=== PATIENT | male | born 1975 | race Caucasian/White ===

== ENCOUNTER 2020-06-21 06:46 | Emergency (ER) | payer BC ==
[2020-06-21] MEDS ORDERED: NORMAL SALINE 1000 ML 1,000 ML IV ONE (07:22)
[2020-06-21] MEDS ORDERED: DIPH/PERTUSS(ACELL)/TETANUS VAC/PF 0.5 ML SYR (>=10YO) IM ONE (07:23)
--- NOTE | 2020-06-21 07:29 | ER Document Report ---
ED General - General Chief Complaint: Syncope Stated Complaint: FALL Time Seen by Provider: 06/21/20 07:06 - HPI Notes: Chief complaint: Syncopal episode History of present illness: 45-year-old male visiting here from [facility] transported to our department this morning after experiencing a syncopal episode shortly after awakening. The patient says that he had gone in the kitchen to prepare some coffee and he felt slightly chilled and then felt momentarily short of breath. He stepped to the door to "get some fresh air" and as he started open the door he lost consciousness and fell to the floor striking his head on a cabinet sustaining a mild laceration to the right worship area. He was unconscious only momentarily and immediately fully awake and oriented. No nausea vomiting. No tonic-clonic movements per his who was with him at the time. States that he feels fine now. Denies any prior history of syncopal episodes. He denies any chest pain or hemoptysis. He denies any lower extremity pain or swelling. He is a non-smoker. Last tetanus booster was more than 4 years ago. Patient has been traveling for the holidays to come here from [place] to visit with his son. He denies any personal or familial history of thromboembolic disease. We note that he has been treated within the last year for renal cell carcinoma and had a left nephrectomy about 8 months ago. He also is on Bystolic for hypertension says he has been taking this for about 18 years. No other regular medications. No known allergies. 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 Denies alcohol consumption. Denies any use of illicit drugs. - Related Data Allergies/Adverse Reactions: No Known Allergies Allergy (Verified 06/21/20 10:12) Past Medical History - General Information source: Patient, Emergency Med Personnel - Social History Smoking Status: Never Smoker Chew tobacco use (# tins/day): No Frequency of alcohol use: None Drug Abuse: None Lives with: Spouse/Significant other Family History: Reviewed & Not Pertinent - Past Medical History Cardiac Medical History: Reports: Hx Hypertension Denies: Hx DVT, Hx Heart Attack, Hx Pulmonary Embolism Pulmonary Medical History: Reports: None Neurological Medical History: Reports: None Endocrine Medical History: Denies: Hx Diabetes Mellitus Type 1, Hx Diabetes Mellitus Type 2 Renal/ Medical History: Reports: Other - History of renal cell carcinoma Malignancy Medical History: Reports Hx Renal (Kidney) Cancer GI Medical History: Reports: None Musculoskeletal Medical History: Reports None Psychiatric Medical History: Reports: None Traumatic Medical History: Reports: None Past Surgical History: Reports: Hx Urinary Tract Surgery - Left nephrectomy Review of Systems - Review of Systems Notes: Constitutional: Negative for fever. HENT: Negative for sore throat. Eyes: Negative for visual changes. Cardiovascular: Negative for chest pain. Respiratory: As per HPI. Gastrointestinal: Negative for abdominal pain, vomiting or diarrhea. Genitourinary: Negative for dysuria. Musculoskeletal: Negative for back pain. Skin: Negative for rash. Neurological: Negative for headaches, focal weakness or numbness. 10 point ROS negative except as marked above and in HPI. Physical Exam - Vital signs Vitals: Pulse Ox 94 06/21/20 06:56 - Notes Notes: GENERAL: Well-developed well-nourished male approximately stated age appearing in no acute distress. SKIN: Good turgor no rashes. HEAD: Patient has a very superficial flap laceration of the right temporal area which measures about 2.0 cm's total length. No active bleeding from this. EYES: PERRLA. EOMI. Conjunctivae and sclerae clear. EARS: CANALS AND TMS CLEAR. NOSE: CLEAR. MOUTH: Moist mucosa. Good dentition. No stridor or edema. No drooling. NECK: Semirigid c-collar in place per EMS. No masses or thyromegaly. No adenopathy. Carotids 2+ without bruits. No JVD. BACK: Symmetrical without tenderness. CHEST: Respirations unlabored. Breath sounds clear and symmetrical. HEART: Regular rhythm. No murmur gallop or rub. ABDOMEN: Soft nontender without masses, organomegaly or rebound. Bowel sounds normally active. No bruits. GENITALIA: Deferred. EXTREMITIES: No edema. No calf tenderness. Cap refill less than 1.5 seconds. Dorsalis pedis and posterior tibial pulses 3+ and symmetrical. NEUROLOGICAL: GCS 15. Alert and oriented x3. Fluent speech. Cranial nerves II through XII intact. Sensorimotor and cerebellar normal. Normal tone. PSYCHIATRIC: Appropriate affect. Course - Re-evaluation Re-evalutation: 06/21/20 07:29 I reviewed his twelve-lead EKG and is unremarkable. He was mildly orthostatic in the field per EMS. I will give him a 1 L normal saline fluid bolus here and then recheck orthostatic vital signs. We will check a stool guaiac for him. I am going to get a D-dimer to screen him for pulmonary embolus. I have also requested CBC, comprehensive metabolic profile, troponin, urinalysis, blood alcohol and urine drug screen. Will obtain a chest x-ray and other imaging will include a noncontrast head CT and noncontrast CT of C-spine. Tetanus booster will be administered. The superficial wound on his right worship area appears to be appropriate for closure with Dermabond. 06/21/20 14:22 Per radiologist this gentleman had a negative head CT noncontrast and a negative noncontrast CT of the C-spine. His chest x-ray shows some multifocal infiltrates. White count is 18,000. He denies known Covid exposure but has been traveling. He also had a mildly elevated D-dimer. We obtained a CTA of the chest which showed no evidence of PE but he does have multi lobar infiltrates. A rapid Covid test was obtained and was negative. Prior to getting the results of this we gave this man a dose of IV Decadron. Blood cultures were obtained and we gave him azithromycin and Rocephin IV. Patient is not currently orthostatic. His EKG was normal. His troponin is normal. His oxygenation is normal. Case was reviewed with on-call hospitalist Dr. Levin. She did not feel that he met appropriate criteria at this time for admission or inpatient observation. She recommends outpatient treatment with oral antibiotic and follow-up for new or worsening symptoms. This has been reviewed with the patient and his and they are comfortable with this. Findings, clinical impression and plan of treatment have been discussed with patient/family. Understanding of current findings and recommendations has been acknowledged by them and there is agreement regarding disposition and follow-up. - Vital Signs Vital signs: Temp Pulse Resp BP Pulse Ox 98.1 F 24 H 148/83 H 94 06/21/20 09:31 06/21/20 13:31 06/21/20 13:31 06/21/20 13:31 - Laboratory Results Result Diagrams: 06/21/20 07:53 06/21/20 07:53 Laboratory Results Interpreted: 06/21/20 06/21/20 06/21/20 07:53 07:53 07:53 WBC 18.6 H RBC 5.65 H Hgb 13.4 L MCV 72 L MCH 23.7 L RDW 15.5 H Seg Neuts % (Manual) 94 H Band Neutrophils % 1 L Lymphocytes % (Manual) 4 L Monocytes % (Manual) 1 L Abs Neuts (Manual) 17.7 H D-Dimer 0.52 H Sodium 136.9 L Glucose 114 H Critical Laboratory Results Reviewed: Yes Attending or Supervising Physician who Reviewed Labs: IVANA CRUZ Radiology Results Radiology Results Interpreted: 06/21/20 14:21 Chest X-Ray 06/21/20 07:21 IMPRESSION: In the appropriate clinical setting, findings are consistent with multi lobar pneumonia. Cervical Spine CT 06/21/20 07:22 IMPRESSION: NO ACUTE OR SIGNIFICANT FINDINGS IN THE CERVICAL SPINE. Head CT 06/21/20 07:22 IMPRESSION: NORMAL BRAIN CT WITHOUT CONTRAST. EVIDENCE OF ACUTE STROKE: NO. Chest/Abdomen CTA 06/21/20 09:33 IMPRESSION: 1. No central or segmental pulmonary embolus. 2. Re- demonstration of multifocal airspace opacities, consistent with multi lobar pneumonia. Given distribution, recommend consideration for atypical etiologies to include viral/COVID in treatment planning. 3. Chronic and incidental findings as detailed above. Critical Radiology Results Reviewed: Yes Attending or Supervising Physician who Reviewed Radiology: IVANA CRUZ EKG Interpretation by Me Additional EKG results interpreted by me: 06/21/20 07:32 Twelve-lead EKG reviewed by me contemporaneously: 0709 hrs. Indication for study: Syncope Rhythm: Normal sinus Rate: 95 Intervals: Normal intervals QRS axis: -[address]/T wave changes: None Comparison with prior tracing: None Interpretation: Left axis deviation Procedures - Laceration/Wound Repair Right Face Time completed: 12:20 Wound length (cm): 2.5 Wound's Depth, Shape: Superficial, Flap Laceration pre-procedure: Betadine prep applied Wound explored: Clean Wound Repaired With: Dermabond Post-procedure wound care: Sterile dressing applied Discharge - Discharge Clinical Impression: Multi lobar pneumonia, Facial laceration Syncope Qualifiers: Syncope type: unspecified Qualified Code(s): R55 - Syncope and collapse Condition: Stable Disposition: HOME, SELF-CARE Prescriptions: Azithromycin 250 mg PO ASDIR PRN #6 tablet PRN Reason: Prednisone [Deltasone 20 mg Tablet] 2 tab PO DAILY 5 Days tablet
--- NOTE | 2020-06-21 08:09 | RADIOLOGY REPORT (SQ) ---
EXAM DESCRIPTION: CT HEAD WITHOUT IMAGES COMPLETED DATE/TIME: 06/21/2020 7:38 am REASON FOR STUDY: trauma COMPARISON: None. TECHNIQUE: Axial images acquired through the brain without intravenous contrast. Images reviewed wi th bone, brain and subdural windows. Additional sagittal and coronal reconstructions were generated. Images stored on PACS. All CT scanners at this facility use dose modulation, iterative reconstruction, and/or weight based d osing when appropriate to reduce radiation dose to as low as reasonably achievable (ALARA). [facility]: Dose Right [facility]: CareDose [facility]: Dose Right [facility]: Teradose 4D [facility]: CereScan RADIATION DOSE: CT Rad equipment meets quality standard of care and radiation dose reduction techniq ues were employed. CTDIvol: 53.2 mGy. DLP: 1017 mGy-cm. mGy. LIMITATIONS: None. FINDINGS: VENTRICLES: Normal size and contour. CEREBRUM: No masses. No hemorrhage. No midline shift. No evidence for acute infarction. Normal gra y/white matter differentiation. No areas of low density in the white matter. CEREBELLUM: No masses. No hemorrhage. No alteration of density. No evidence for acute infarction. EXTRAAXIAL SPACES: No fluid collections. No masses. ORBITS AND GLOBE: No intra- or extraconal masses. Normal contour of globe without masses. CALVARIUM: No fracture. PARANASAL SINUSES: No fluid or mucosal thickening. SOFT TISSUES: No mass or hematoma. OTHER: No other significant finding. IMPRESSION: NORMAL BRAIN CT WITHOUT CONTRAST. EVIDENCE OF ACUTE STROKE: NO. COMMENT: Quality ID # 436: Final reports with documentation of one or more dose reduction techniques (e.g., Automated exposure control, adjustment of the mA and/or kV according to patient size, use of iterative reconstruction technique) TECHNICAL DOCUMENTATION: JOB ID: [id number] 2010 [employer]- All Rights Reserved Reading location - IP/workstation name: [email or web address]
--- NOTE | 2020-06-21 08:12 | RADIOLOGY REPORT (SQ) ---
EXAM DESCRIPTION: CT CERVICAL SPINE WITHOUT IMAGES COMPLETED DATE/TIME: 06/21/2020 7:38 am REASON FOR STUDY: trauma COMPARISON: None. TECHNIQUE: Axial images acquired through the cervical spine without intravenous contrast. Images re viewed with lung, soft tissue and bone windows. Reconstructed coronal and sagittal MPR images review ed. Images stored on PACS. All CT scanners at this facility use dose modulation, iterative reconstruction, and/or weight based d osing when appropriate to reduce radiation dose to as low as reasonably achievable (ALARA). [facility]: Dose Right [facility]: CareDose [facility]: Dose Right [facility]: Teradose 4D [facility]: Smart Floxx RADIATION DOSE: CT Rad equipment meets quality standard of care and radiation dose reduction techniq ues were employed. CTDIvol: 20.8 mGy. DLP: 443 mGy-cm. mGy. LIMITATIONS: None. FINDINGS: ALIGNMENT: Normal. MINERALIZATION: Normal. VERTEBRAL BODIES: No fractures or dislocation. DISCS: Trace disc disease is seen at the C5/6 and C6/7 levels. FACETS, LATERAL MASSES, POSTERIOR ELEMENTS: No fractures. No dislocation. No acute findings. HARDWARE: None in the spine. VISUALIZED RIBS: No fractures. LUNG APICES AND SOFT TISSUES: 7 mm probable colloid cyst within the right thyroid lobe. No cervical masses or lymphadenopathy. OTHER: No other significant finding. IMPRESSION: NO ACUTE OR SIGNIFICANT FINDINGS IN THE CERVICAL SPINE. TECHNICAL DOCUMENTATION: JOB ID: [id number] Quality ID # [id number]: Final reports with documentation of one or more dose reduction techniques (e.g., Au tomated exposure control, adjustment of the mA and/or kV according to patient size, use of iterative reconstruction technique) 2010 [employer]- All Rights Reserved Reading location - IP/workstation name: [email or web address]
--- NOTE | 2020-06-21 08:24 | RADIOLOGY REPORT (SQ) ---
EXAM DESCRIPTION: CHEST SINGLE VIEW IMAGES COMPLETED DATE/TIME: 06/21/2020 7:44 am REASON FOR STUDY: Syncope COMPARISON: None. EXAM PARAMETERS: NUMBER OF VIEWS: One view. TECHNIQUE: Single frontal radiographic view of the chest acquired. RADIATION DOSE: NA LIMITATIONS: None. FINDINGS: LUNGS AND PLEURA: Bibasilar (left greater than right) airspace opacities. No pleural effu pretty or pneumothorax demonstrated. MEDIASTINUM AND HILAR STRUCTURES: No masses. Contour normal. HEART AND VASCULAR STRUCTURES: Heart normal in size. Normal vasculature. BONES: No acute findings. HARDWARE: None in the chest. OTHER: No other significant finding. IMPRESSION: In the appropriate clinical setting, findings are consistent with multi lobar pneumonia. TECHNICAL DOCUMENTATION: JOB ID: [id number] 2010 [employer]- All Rights Reserved Reading location - IP/workstation name: [email or web address]
--- NOTE | 2020-06-21 08:24 | EKG REPORT ---
SEVERITY:- ABNORMAL ECG - SINUS RHYTHM EARLY PRECORDIAL TRANSITION, CONSIDER OLD TRUE POST AZ, CLINICAL CORRELATION. LAD, : Confirmed by: Jacques Underwood MD 21-Jun-2020 08:23:47
[2020-06-21 08:25] LABS: HEMATOCRIT 40.5 % (37.9-51.0); HEMOGLOBIN 13.4 g/dL (13.5-17.0); MEAN CORPUSCULAR HEMOGLOBIN 23.7 pg (27.0-33.4); MEAN CORPUSCULAR HGB CONC 33.1 g/dL (32.0-36.0); MEAN CORPUSCULAR VOLUME 72 fl (80-97); PLATELET COUNT 273 10^3/uL (150-450); RED BLOOD COUNT 5.65 10^6/uL (4.35-5.55); RED CELL DISTRIBUTION WIDTH 15.5 % (11.5-14.0); WHITE BLOOD COUNT 18.6 10^3/uL (4.0-10.5)
[2020-06-21 08:32] LABS: ALBUMIN 3.7 g/dL (3.5-5.0); ALKALINE PHOSPHATASE 93 U/L (38-126); ANION GAP 8 (5-19); ASPARTATE AMINO TRANSFERASE 21 U/L (17-59); BILIRUBIN,DIRECT 0.1 mg/dL (0.0-0.4); BILIRUBIN,TOTAL 0.7 mg/dL (0.2-1.3); BLOOD UREA NITROGEN 15 mg/dL (7-20); CALCIUM 9.1 mg/dL (8.4-10.2); CARBON DIOXIDE 26 mmol/L (22-30); CHLORIDE 103 mmol/L (98-107); GLUCOSE 114 mg/dL (75-110); POTASSIUM 4.7 mmol/L (3.6-5.0); TOTAL PROTEIN 6.6 g/dL (6.3-8.2)
[2020-06-21 08:33] LABS: ALCOHOL < 10 mg/dL (NONE DETECTED)
[2020-06-21 09:01] LABS: ABSOLUTE LYMPHOCYTES# (MANUAL) 0.7 10^3/uL (0.5-4.7); ABSOLUTE MONOCYTES # (MANUAL) 0.2 10^3/uL (0.1-1.4); BAND NEUTROPHILS % (MANUAL) 1 % (3-5); BASOPHILS % (MANUAL) 0 % (0-2); EOSINOPHILS % (MANUAL) 0 % (0-6); LYMPHOCYTES % (MANUAL) 4 % (13-45); MONOCYTES % (MANUAL) 1 % (3-13); SEGMENTED NEUTROPHILS % (MAN) 94 % (42-78); TOTAL CELLS COUNTED 100
[2020-06-21 09:02] LABS: ANISOCYTOSIS SLIGHT; HYPOCHROMASIA 1+; OVALOCYTES SLIGHT; PLATELET COMMENT ADEQUATE
[2020-06-21 11:12] LABS: APPEARANCE,URINE CLEAR; BILIRUBIN,URINE NEGATIVE (NEGATIVE); COLOR,URINE YELLOW; GLUCOSE, URINE NEGATIVE (NEGATIVE); KETONES,URINE NEGATIVE (NEGATIVE); PROTEIN,URINE NEGATIVE (NEGATIVE); URINE SPECIFIC GRAVITY 1.025; UROBILINOGEN,URINE NEGATIVE mg/dL (<2.0)
--- NOTE | 2020-06-21 11:25 | RADIOLOGY REPORT (SQ) ---
EXAM DESCRIPTION: CTA CHEST IMAGES COMPLETED DATE/TIME: 06/21/2020 10:43 am REASON FOR STUDY: dyspnea, elevated dimer, abn CXR, PE?Covid? COMPARISON: Chest radiograph 06/21/2020 TECHNIQUE: CT scan of the chest performed using helical scanning technique with dynamic intravenous contrast injection. Images reviewed with lung, soft tissue and bone windows. Reconstructed coronal and sagittal MPR images reviewed. Additional 3 dimensional post-processing performed to develop Maximal Intensity Projection images (IN P). All images stored on PACS. All CT scanners at this facility use dose modulation, iterative reconstruction, and/or weight based d osing when appropriate to reduce radiation dose to as low as reasonably achievable (ALARA). [facility]: Dose Right [facility]: CareDose [facility]: Dose Right [facility]: Teradose 4D [facility]: Alma Johns CONTRAST TYPE AND DOSE: contrast/concentration: Isovue 350.00 mmol/ml; Total Contrast Delivered: 75. 0 ml; Total Saline Delivered: 80.0 ml Contrast bolus adequate for pulmonary arteries and aorta. RENAL FUNCTION: BUN 15; creatinine 1.0 RADIATION DOSE: CT Rad equipment meets quality standard of care and radiation dose reduction techniq ues were employed. CTDIvol: 15.6 - 16.9 mGy. DLP: 644 mGy-cm. . LIMITATIONS: None. FINDINGS: LUNGS AND PLEURA: Re- demonstration of multifocal airspace opacities involving predominant ly the lung bases. Scattered calcified granulomas. No pleural effusion or pneumothorax. AORTA AND GREAT VESSELS: No aneurysm. No dissection. HEART: No pericardial effusion. No significant coronary artery calcifications. PULMONARY ARTERIES: No emboli visualized in the main pulmonary arteries or the segmental branches. HILAR AND MEDIASTINAL STRUCTURES: No identified masses or abnormal nodes. HARDWARE: None in the chest. UPPER ABDOMEN: Apparent lap band noting dilation of the distal esophagus. THYROID AND OTHER SOFT TISSUES: No masses. No adenopathy. BONES: No acute or significant finding. 3D MIPS: Confirm above findings. OTHER: No other significant finding. IMPRESSION: 1. No central or segmental pulmonary embolus. 2. Re- demonstration of multifocal airspace opacities, consistent with multi lobar pneumonia. Given distribution, recommend consideration for atypical etiologies to include viral/COVID in treatment pl anning. 3. Chronic and incidental findings as detailed above. COMMENT: Quality ID # 436: Final reports with documentation of one or more dose reduction techniques (e.g., Automated exposure control, adjustment of the mA and/or kV according to patient size, use of iterative reconstruction technique) TECHNICAL DOCUMENTATION: JOB ID: [id number] 2010 [employer]- All Rights Reserved Reading location - IP/workstation name: [email or web address]
[2020-06-21 11:32] LABS: URINE AMPHETAMINES SCREEN NEGATIVE; URINE BARBITURATES SCREEN NEGATIVE; URINE BENZODIAZEPINES SCREEN NEGATIVE; URINE COCAINE SCREEN NEGATIVE; URINE MARIJUANA (THC) SCREEN NEGATIVE; URINE METHADONE SCREEN NEGATIVE; URINE PHENCYCLIDINE SCREEN NEGATIVE
[2020-06-21] MEDS ORDERED: CEFTRIAXONE INJ 1000 MG VIAL IV ONE (11:54)
[2020-06-21] MEDS ORDERED: DEXAMETHASONE SOD PHOS INJ 10 MG/1 ML VIAL IV ONE (11:54)
[2020-06-21] MEDS ORDERED: AZITHROMYCIN INJ 500 MG VIAL IV ONE (11:56)
[2020-06-21] MEDS ORDERED: CEFTRIAXONE 1 GM/D5W RTU 1 GM/50 ML RTUPB IV ONE (12:02)
[2020-06-21 15:50] VITALS: BP 146/82
== END 2020-06-21 15:15 | disposition home or self-care (01) ==
LOC: ER 06:46
DX: J18.1 Lobar pneumonia, unspecified organism (principal); S01.81XA Laceration without foreign body of other part of head, initial encounter; R55 Syncope and collapse; W19.XXXA Unspecified fall, initial encounter; Y92.009 Unspecified place in unspecified non-institutional (private) residence as the place of occurrence of the external cause; I10 Essential (primary) hypertension; Z20.828 Contact with and (suspected) exposure to other viral communicable diseases; Z23 Encounter for immunization
CPT/HCPCS: 93005; 99285; 96361; 96375; 96365; 96368; 36415; 87040; 80307 ×2; 83735; 85025; 0241U ×4; 80053; 81001; 84484; 85379; 71045; 70450; 71275; 72125; 90715; 93010; 12011; J0696; J7030; J0456; J1100; C9803